=== PATIENT | male | born 1970 | race Native Hawaiian/Other Pacific Islander ===

== ENCOUNTER 2024-02-15 18:21 | Day surgery (SDC) | payer OTHER, SELFPAY ==
[2024-02-15 18:33] VITALS: BP 151/81; PULSE 69; RESP 18; TEMP 36.6; O2SAT 97; BMI 32.0
--- NOTE | 2024-02-15 19:02 | CRLHL7_ITS ---
For Patients: As a result of the Century Cures Act, medical imaging exams and procedure reports are released immediately into your electronic medical record. You may view this report before your referring provider. If you have questions, please contact your health care provider. INDICATION: Abdominal pain, history of kidney stones. TECHNIQUE: CT abdomen and pelvis acquired with 97 cc of Isovue 370 IV contrast. COMPARISON: None. FINDINGS: Lower chest: Mild bibasilar atelectasis. Liver: Unremarkable. Normal in size and attenuation. No suspicious masses. Gallbladder and bile ducts: Unremarkable. No stones or inflammation. No biliary dilatation. Pancreas: Unremarkable. No mass or inflammation. Spleen: Unremarkable. Normal in size. No masses. Adrenal glands: Unremarkable. No nodules. Kidneys: Unremarkable. No suspicious masses, stones, or hydronephrosis. GI tract: Dilated appendix measuring up to 12 mm mild periappendiceal inflammatory stranding. Few small appendicoliths within the lumen. No evidence for perforation or abscess formation. Fatty infiltration of the wall of the ascending and transverse colon as well as the distal rectum. No bowel obstruction. Vasculature: Abdominal aorta is normal in caliber. Mesenteric arteries are patent. Lymph nodes: No lymphadenopathy. Peritoneum/Abdominal Wall: Unremarkable. No free air or significant free fluid. Pelvis: Unremarkable. Bones: Unremarkable for age. IMPRESSION: 1. Dilated appendix, measuring up to 12 mm, with mild periappendiceal inflammatory stranding in the right lower quadrant, compatible with acute uncomplicated appendicitis. 2. Fatty infiltration of the ascending and transverse colon wall as well as the distal rectum, suggestive of chronic inflammation. Please note that all CT scans at this facility use dose modulation, iterative reconstruction, and/or weight-based dosing when appropriate to reduce radiation dose to as low as reasonably achievable. Dictated by Aj Adam MD @ 02/15/2024 8:14:22 PM (Electronically Signed)
--- NOTE | 2024-02-15 19:03 | ED.ABDPAIN ---
HPI - Abdominal Pain General Chief Complaint: Abdominal Pain Stated Complaint: Abdominal pain Time Seen by Provider: 02/15/24 18:56 History of Present Illness HPI narrative: This 53-year-old male comes in with his who does all the speaking for him. They are both Sinhala speaking but his can communicate in Serbian. He comes in with diffuse abdominal pain that started today. He has had some nausea and vomiting but no diarrhea. There is no report of fever. He does have a history of kidney stones. He arrives here with normal vital signs except for blood pressure a bit elevated. Related Data Home Medications ?Medication ?Instructions ?Recorded ?Confirmed No Known Home Medications 02/15/24 02/15/24 Allergies Allergy/AdvReac Type Severity Reaction Status Date / Time No Known Drug Allergies Allergy Verified 02/15/24 19:17 Review of Systems Narrative Unobtainable directly from the patient. His speaks for him. [facility] Social History Smoking Status: Never smoker Do you use any of these nicotine containing products: None How often do you have a drink containing alcohol: never AUDIT-C Alcohol total score: 0 Non-prescribed substance use: denies use Exam Narrative: Exam Narrative: Constitutional: Well-developed, well-nourished, no acute distress. HEENT: Normocephalic, atraumatic. Neck: Normal range of motion. Nontender. Supple. Heart: Regular. No murmurs. Normal rate. Intact distal pulses. Lungs: Clear to auscultation. No chest discomfort. No wheezes, rhonchi, or rales. Abdomen: Normal bowel sounds. Diffuse abdominal pain. No rebound tenderness. No obvious pain when percussing over left and right flank region. Genitalia: Deferred. Back: No midline tenderness. Normal range of motion. Extremities: Normal range of motion. No injury. Skin: Intact. No rash. Warm. No erythema or pallor. Neurologic: No altered sensation. No weakness. Alert and oriented. Psychiatric: No suicidality. No anxiety or depression. No insomnia. Nursing notes and vitals signs are reviewed. Const: Vital Signs, click to edit/add: Vital Signs - 24 hr 02/15/24 18:33 Temperature 97.9 F Pulse Rate [Pulse Oximeter] 69 Respiratory Rate 18 Blood Pressure [Ri ght Upper Arm] 151/81 H Pulse Oximetry 97 Oxygen Delivery Me thod Room Air Course Vital Signs Vital signs: Initial Vital Signs Temperature 97.9 F 02/15/24 18:33 Temperature Source Temporal Artery Scan 02/15/24 18:33 Pulse Rate 69 02/15/24 18:33 Respiratory Rate 18 02/15/24 18:33 Blood Pressure 151/81 H 02/15/24 18:33 Blood Pressure Mean 104 02/15/24 18:33 Pulse Oximetry 97 02/15/24 18:33 Oxygen Delivery Method Room Air 02/15/24 18:33 Vital Signs Temperature 97.9 F 02/15/24 18:33 Pulse Rate 69 02/15/24 18:33 Respiratory Rate 18 02/15/24 18:33 Blood Pressure 151/81 H 02/15/24 18:33 Pulse Oximetry 97 02/15/24 18:33 Oxygen Delivery Method Room Air 02/15/24 18:33 Temperature 97.9 F 02/15/24 18:33 Pulse Rate 69 02/15/24 18:33 Respiratory Rate 18 02/15/24 18:33 Blood Pressure 151/81 H 02/15/24 18:33 Pulse Oximetry 97 02/15/24 18:33 Oxygen Delivery Method Room Air 02/15/24 18:33 Medications Administered Medications: Discontinued Medications Generic Name Dose Route Start Last Admin Trade Name Freq PRN Reason Stop Dose Admin Sodium Chloride 500 mls @ 500 mls/hr 02/15/24 19:00 02/15/24 19:57 0.9 % Sodium Chloride 500 Ml IV 02/15/24 19:59 500 mls/hr .Q1H ONE Administration Ketorolac Tromethamine 30 mg 02/15/24 19:00 02/15/24 19:18 Ketorolac 30 Mg/Ml Inj IVP 02/15/24 19:01 30 mg ONCE ONE Administration Ondansetron HCl 4 mg 02/15/24 19:00 02/15/24 19:19 Ondansetron 2 Mg/Ml Inj IVP 02/15/24 19:01 4 mg ONCE ONE Administration MDM - Abdominal Pain MDM Narrative Medical decision making narrative: This patient comes in with abdominal pain. I did employ finished hardware erector services as the patient and his do not speak much Serbian. His pain began last evening. An IV was established where he did receive 30 mg of Toradol which brought relief to his symptoms. There is a report of a prior history of kidney stones. I did obtain CT scan of the abdomen and pelvis with IV contrast and there was no sign of kidney stones but his appendix is enlarged a 12 mm typical of uncomplicated acute appendicitis. I did speak with the surgeon on-call regarding this who plans to remove the appendix early tomorrow morning at 6:00 a.m.. I spoke with the hospitalist on-call who agrees to his admission for this to occur. Lab Data Labs: Lab Results 02/15/24 Range/Units 19:10 WBC 13.72 H (4.50-11.00) K/uL RBC 5.21 (4.30-5.90) m/uL Hgb 15.3 (13.5-17.5) gm/dL Hct 45.0 (37.0-53.0) % MCV 86 (80-100) fL MCH 29 (26-34) pg MCHC 34 (32-36) gm/dL RDW Coeff of Amrit 12.4 (11.5-15.5) % Plt Count 269 (140-440) K/uL Neut % (Auto) 85.9 H (42.0-72.0) % Lymph % (Auto) 10.0 L (20-44) % Mineral % (Auto) 3.7 (0.0-11.0) % Eos % (Auto) 0.1 (0.0-7.0) % Baso % (Auto) 0.1 (0.0-3.0) % Neut # (Auto) 11.80 H (1.7-7.0) K/uL Lymph # (Auto) 1.40 (0.90-2.90) K/uL Mineral # (Auto) 0.50 (0.00-0.90) K/UL Eos # (Auto) 0.00 (0.00-0.50) K/uL Baso # (Auto) 0.00 (0.00-0.30) K/uL Abs Immat Gran (auto) 0.00 (0.00-0.30) K/uL Imm/Tot Granulo (auto) 0.2 % Sodium 133 L (135-149) mmol/L Potassium 3.7 (3.6-5.1) mmol/L Chloride 99 (96-114) mmol/L Carbon Dioxide 26 (20-32) mmol/L Anion Gap 8 (7-15) mEq/L BUN 13 (7-30) mg/dL Creatinine 0.6 (0.5-1.5) mg/dL Estimated Creat Clear 125.53 Estimated GFR 114 ml/min Glucose 163 H (60-115) mg/dL Calcium 8.8 (8.4-10.6) mg/dL Lipase 32 (23-300) U/L Imaging Data CT scan - abdomen: Radiologist's impression: 1. Dilated appendix, measuring up to 12 mm, with mild periappendiceal inflammatory stranding in the right lower quadrant, compatible with acute uncomplicated appendicitis. 2. Fatty infiltration of the ascending and transverse colon wall as well as the distal rectum, suggestive of chronic inflammation. Discharge Plan Discharge Clinical Impression: Acute appendicitis Patient Disposition: Admitted As Observation Condition: Unchanged Prescriptions: No Action No Known Home Medications Follow Up/Referrals: Provider,Not a Local [Primary Care Provider] -
[2024-02-15] MEDS: KETOROLAC 30 MG/ML inj IVP (19:18)
[2024-02-15 19:19] LABS: Basophils Percent Auto 0.1 % (0.0-3.0); Eosinophils Percent Auto 0.1 % (0.0-7.0); Hemoglobin* 15.3 gm/dL (13.5-17.5); Immature Granulocytes Pct Auto 0.2 %; Mean Corpuscular HGB Conc 34 gm/dL (32-36); Mean Corpuscular Hemoglobin 29 pg (26-34); Mean Corpuscular Volume 86 fL (80-100); Monocytes Percent Auto 3.7 % (0.0-11.0); Neutrophils Percent Auto 85.9 % (42.0-72.0); Platelet Count* 269 K/uL (140-440); RDW Coefficient of Variation % 12.4 % (11.5-15.5); Red Blood Count 5.21 m/uL (4.30-5.90); White Blood Count* 13.72 K/uL (4.50-11.00)
[2024-02-15] MEDS: ONDANSETRON 2 MG/ML inj 4 MG IVP (19:19)
[2024-02-15 19:30] VITALS: O2SAT 97
[2024-02-15 19:35] LABS: Chloride* 99 mmol/L (96-114); Potassium* 3.7 mmol/L (3.6-5.1); Sodium* 133 mmol/L (135-149)
[2024-02-15 19:36] LABS: Slide Review Reflex No
[2024-02-15 19:38] LABS: Anion Gap 8 mEq/L (7-15); Blood Urea Nitrogen* 13 mg/dL (7-30); Calcium* 8.8 mg/dL (8.4-10.6); Carbon Dioxide* 26 mmol/L (20-32); Creatinine* 0.6 mg/dL (0.5-1.5); Est. Creatinine Clearance* 125.53; Estimated Glomerular Filt Rate 114 ml/min; Glucose* 163 mg/dL (60-115)
[2024-02-15] MEDS: 0.9 % SODIUM CHLORIDE 500 ML 500 ML IV (19:57)
--- OUTSIDE RECORDS SUMMARY | 2024-02-15 19:59 | XMS_ITS | Clinical Summary ---
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 Depression with anxiety 08/07/2010 Family history of diabetes mellitus 02/01/2007 Immunizations Name Administration Dates Next Due Tdap 06/14/2018 Family History Medical History Relation Name Comments Good Health Brother Good Health Daughter 1 Good Health Daughter 2 Diabetes Father Hypertension Mother Good Health Sister Good Health Son 1 Good Health Son 2 Relation Name Status Comments Brother Daughter 1 Daughter 2 Father Mother Sister Son 1 Son 2 Social History Tobacco Use Types Packs/Day Years Used Date Smoking Tobacco: Former Cigarettes Q uit: 03/16/1989 Smokeless Tobacco: Never Tobacco Cessation:Counseling Given: Not Answered Alcohol Use Standard Drinks/Week Comments Yes 0 (1 standard drink = 0.6 oz pur e alcohol) rare PHQ-2 Answer Date Recorded PHQ-2 Score 2 06/14/2018 Social Connections Answer Date Recorded Frequency of Communication with Friends and Fami ly Not on file 04/04/2022 Sex and Gender Information Value Date Recorded Sex Assigned at Not on file Gender Identity Not on file Sexual Orientation Not on file Obstetrics History Last Filed Vital Signs Vital Sign Reading Time Taken Comments Blood Pressure 151/95 04/04/2022 1:40 PM DIRECTOR NEWS Pulse 76 04/04/2022 1:40 PM DIRECTOR NEWS Temperature 36.7 C (98.1 F) 06/14/2018 8:23 AM CDT Respiratory Rate 16 01/27/2017 3:20 PM DIRECTOR NEWS Oxygen Saturation 95% 06/14/2018 8:23 AM CDT Inhaled Oxygen Concentration - - Weight 88.3 kg (194 lb 11.2 oz) 04/04/2022 1:40 PM DIRECTOR NEWS Height 160.8 cm (5' 3.31) 06/14/2018 8:23 AM CD T Body Mass Index 34.16 06/14/2018 8:23 AM CDT Plan of Treatment Health Maintenance Due Date Last Done Comments HIV for age 15-65 09/19/1983 Hepatitis C screening for age 18-79 1986 Colonoscopy through age 75 2013 Zoster (shingles) series for age 50+ (1 of 2) 2018 BMI (ht and wt on same day) for age 18+ 06/15/2019 06/14/2018 Depression screening for age 12+ 06/15/2019 06/14/2018 Lipids for age 45-75 06/15/2023 06/14/2018, 08/21/19 11 COVID-19 vaccine series ( season) 2023 01/21/2022, 05/27/2021, 07/17/2020, Additional history exists Influenza for age 50-64 11/15/2023 Tetanus booster 06/14/2028 06/14/2018 Tdap Completed 06/14/2018 Pneumococcal series for age 6-64 Aged Out No longer eligible based on patient's age to complete this topic Procedures Procedure Name Priority Date/Time Associated Diagnosis Comments LIPID PANEL W REFLEX MEASURED LDL Routine 06/14/2018 9:30 AM CDT Screening for lipoid disorders from Last 3 Months or Most Recently Relevant to Health Maintenance Results * LIPID PANEL W REFLEX MEASURED LDL (06/14/2018 9:30 AM CDT) CHOLESTEROL,TOTAL 175 100 - 199 mg/dL 06/14/2018 4:03 PM CDT [facility] TRIGLYCERIDES 80 <150 mg/dL 06/14/2018 4:03 PM CDT [facility] HDL CHOLESTEROL 48 >40 mg/dL 9 4:03 PM CDT [facility] NON-HDL CHOLESTEROL 127 <145 mg/dl 06/14/2018 4:03 PM CDT [facility] CHOL/HDL RATIO 3.65 <4.50 06/14/2018 4:03 PM CDT [facility] LDL CHOLESTEROL 111 <=130 mg/dL 06/14/2018 4:03 PM CDT [facility] PROVIDER ORDERED STATUS RANDOM 06/14/2018 4:03 PM CDT [facility] Blood BLOOD SPECIMEN / Unknown Venipuncture / Unknown 06/14/2018 9:30 AM CDT 06/14/2018 9:32 AM CDT Cheryl Yung MD CHEMISTRY [facility] [address] [place] [address], [place] from Last 3 Months or Most Recently Relevant to Health Maintenance
[2024-02-15 20:17] LABS: Lipase* 32 U/L (23-300)
--- OUTSIDE RECORDS SUMMARY | 2024-02-15 21:27 | XMS_ITS | Clinical Summary ---
Author Organization [facility] Address [place], [place] [address] Care Team Providers Care Health Promotion Coordinator Name Role Phone Unavailable Primary Care Provider [...] Comments Blood Pressure 151/95 04/04/2022 1:40 PM [employer] Pulse 76 04/04/2022 1:40 PM [employer] Temperature 36.7 C (98.1 F) 06/14/2018 8:23 AM CDT Respiratory Rate 16 01/27/2017 3:20 PM [employer] Oxygen Saturation 95% 06/14/2018 8:23 AM CDT Inhaled Oxygen Concentration - - Weight 88.3 kg (194 lb 11.2 oz) 04/04/2022 1:40 PM [employer] Height 160.8 cm (5' 3.31) 06/14/2018 8:23 [...] - 199 mg/dL 06/14/2018 4:03 PM CDT [facility] TRIGLYCERIDES 80 <150 mg/dL 06/14/2018 4:03 PM CDT [facility] HDL CHOLESTEROL 48 >40 mg/dL 9 4:03 PM CDT [facility] NON-HDL CHOLESTEROL 127 <145 mg/dl 06/14/2018 4:03 PM CDT [facility] CHOL/HDL RATIO 3.65 <4.50 06/14/2018 4:03 PM CDT [facility] LDL CHOLESTEROL 111 <=130 mg/dL 06/14/2018 4:03 PM CDT [facility] PROVIDER ORDERED STATUS RANDOM 06/14/2018 4:03 PM CDT [facility] Blood BLOOD SPECIMEN / Unknown Venipuncture / Unknown 06/14/2018 9:30 AM CDT 06/14/2018 9:32 AM CDT Cheryl Yung MD CHEMISTRY [facility] [address] [place] [address], [place] from Last 3 Months or Most Recently Relevant to Health Maintenance
[2024-02-15 21:46] VITALS: BP 145/74; PULSE 74; RESP 18; TEMP 36.6; O2SAT 97
--- NOTE | 2024-02-15 21:47 | P.IMHP_ITS ---
Hospitalist- H&P: HPI History of Present Illness Date Seen: 02/15/24 Chief complaint: Abdominal pain Narrative: Jose Blunt is a 53 year old male with no significant past medical history except for kidney stones. Patient presents to the ED with abdominal pain. Patient is Togolese speaking but his can communicate in [place]. Patient comes in with diffuse abdominal pain that started today. He has had some nausea and vomiting (patient mentioned that he only vomited once) but no diarrhea. No fever or chills. At the ED, patient was hemodynamically stable. CT of the abdomen suggests appendicitis. ED provider contacted Dr. Werner from General surgery, she stated that she will take him to OR tomorrow morning. Review of Systems Status of ROS: Reports: 6 or more systems reviewed and unremarkable except as noted in History and below PFSH PFS Social History Smoking Status: Never smoker Do you use any of these nicotine containing products: None How often do you have a drink containing alcohol: never AUDIT-C Alcohol total score: 0 Non-prescribed substance use: denies use Meds Home Medications and Allergies Home Medications ?Medication ?Instructions ?Recorded ?Confirmed ?Type No Known Home Medications 02/15/24 02/15/24 History Allergies Allergy/AdvReac Type Severity Reaction Status Date / Time No Known Drug Allergies Allergy Verified 02/15/24 19:17 Exam Narrative: Exam Narrative: Physical exam GENERAL: Comfortable, no acute distress. HEAD AND NECK: Atraumatic, normocephalic CARDIOVASCULAR: RRR. Normal S1, S2. No murmurs. RESPIRATORY: Clear to auscultation B/L. Good air entry B/L. No wheezes or rhonchi. GASTROINTESTINAL: Obese, diffuse tenderness to palpation. No rigidity or guarding. NEUROLOGY: Alert, awake, oriented X 3. Normal speech. No focal weakness. PSYCH: Normal mood, normal affect. Const: Vital Signs, click to edit/add: Vital Signs - 24 hr 02/15/24 18:33 02/15/24 21:46 Temperature 97.9 F 97.9 F Pulse Rate [Pulse Oximeter] 69 74 Respiratory Rate 18 18 Blood Pressure [Ri ght Upper Arm] 151/81 H 145/74 H Pulse Oximetry 97 97 Oxygen Delivery Me thod Room Air Room Air Hospitalist - H&P: Result Labs Labs: Short CBC 12/02/24 Range/Units 19:10 WBC 13.72 H (4.50-11.00) K/uL Hgb 15.3 (13.5-17.5) gm/dL Hct 45.0 (37.0-53.0) % Plt Count 269 (140-440) K/uL [facility] 02/15/24 19:10 Sodium 133 L Potassium 3.7 Chloride 99 Carbon Dioxide 26 BUN 13 Creatinine 0.6 Glucose 163 H Calcium 8.[address] scan - abdomen: Radiologist's impression: TECHNIQUE: CT abdomen and pelvis acquired with 97 cc of Isovue 370 IV contrast. COMPARISON: None. FINDINGS: Lower chest: Mild bibasilar atelectasis. Liver: Unremarkable. Normal in size and attenuation. No suspicious masses. Gallbladder and bile ducts: Unremarkable. No stones or inflammation. No biliary dilatation. Pancreas: Unremarkable. No mass or inflammation. Spleen: Unremarkable. Normal in size. No masses. Adrenal glands: Unremarkable. No nodules. Kidneys: Unremarkable. No suspicious masses, stones, or hydronephrosis. GI tract: Dilated appendix measuring up to 12 mm mild periappendiceal inflammatory stranding. Few small appendicoliths within the lumen. No evidence for perforation or abscess formation. Fatty infiltration of the wall of the ascending and transverse colon as well as the distal rectum. No bowel obstruction. Vasculature: Abdominal aorta is normal in caliber. Mesenteric arteries are patent. Lymph nodes: No lymphadenopathy. Peritoneum/Abdominal Wall: Unremarkable. No free air or significant free fluid. Pelvis: Unremarkable. Bones: Unremarkable for age. IMPRESSION: 1. Dilated appendix, measuring up to 12 mm, with mild periappendiceal inflammatory stranding in the right lower quadrant, compatible with acute uncomplicated appendicitis. 2. Fatty infiltration of the ascending and transverse colon wall as well as the distal rectum, suggestive of chronic inflammation. Please note that all CT scans at this facility use dose modulation, iterative reconstruction, and/or weight-based dosing when appropriate to reduce radiation dose to as low as reasonably achievable. Dictated by Aj Adam MD @ 02/15/2024 8:14:22 PM Assessment and Plan Assessment and plan (1) Acute appendicitis: Problem comment: -Abdominal pain that started today. nausea and vomiting. No fever or chills. - CT of the abdomen suggests appendicitis. -ED provider contacted Dr. Werner from General surgery, she stated that she will take him to OR tomorrow morning. -NPO -start IV antibiotics, ceftriaxone and IV Flagyl. -IV fluid maintenance. -pain management with morphine. Status: Acute (2) Leukocytosis: Problem comment: Will monitor Status: Acute Plan As above Total Time Spent Total Time Spent: Time spent: Today I spent 75 minutes seeing the patient, discussing the patient with ER staff, reviewing Expanse and EPIC notes/diagnostics, discussing the care plan with our care time that includes social work, PT/OT, pharmacy, RT, [facility] and documenting my impressions and plan in the medical record.
[2024-02-15 21:49] VITALS: BP 145/74; PULSE 74; RESP 18; TEMP 36.6
[2024-02-15 23:05] VITALS: BP 143/92; PULSE 75; RESP 16; TEMP 36.1; O2SAT 95; BMI 31.9
--- OUTSIDE RECORDS SUMMARY | 2024-02-15 23:15 | XMS_ITS | Clinical Summary ---
Author Organization [facility] Address [place], [place] [address] Care Team Providers Care Drying Oven Attendant Name Role Phone Unavailable Primary Care Provider [...] Comments Blood Pressure 151/95 04/04/2022 1:40 PM DIVINE [employer]ALER Pulse 76 04/04/2022 1:40 PM DIVINE HEALER Temperature 36.7 C (98.1 F) 06/14/2018 8:23 AM CDT Respiratory Rate 16 01/27/2017 3:20 PM DIVINE HEALER Oxygen Saturation 95% 06/14/2018 8:23 AM CDT Inhaled Oxygen Concentration - - Weight 88.3 kg (194 lb 11.2 oz) 04/04/2022 1:40 PM DIVINE HEALER Height 160.8 cm (5' 3.31) 06/14/2018 8:23 [...] - 199 mg/dL 06/14/2018 4:03 PM CDT [facility] TRIGLYCERIDES 80 <150 mg/dL 06/14/2018 4:03 PM CDT [facility] HDL CHOLESTEROL 48 >40 mg/dL 9 4:03 PM CDT [facility] NON-HDL CHOLESTEROL 127 <145 mg/dl 06/14/2018 4:03 PM CDT [facility] CHOL/HDL RATIO 3.65 <4.50 06/14/2018 4:03 PM CDT [facility] LDL CHOLESTEROL 111 <=130 mg/dL 06/14/2018 4:03 PM CDT [facility] PROVIDER ORDERED STATUS RANDOM 06/14/2018 4:03 PM CDT [facility] Blood BLOOD SPECIMEN / Unknown Venipuncture / Unknown 06/14/2018 9:30 AM CDT 06/14/2018 9:32 AM CDT Cheryl Yung MD CHEMISTRY [facility] [address] [place] [address], [place] from Last 3 Months or Most Recently Relevant to Health Maintenance
[2024-02-15] MEDS: MORPHINE 4 MG/ML INJ 2 MG IVP (23:37)
[2024-02-15] MEDS: 0.9 % SODIUM CHLORIDE 1000 ml 1,000 ML 100 ML IV (23:39)
[2024-02-15] MEDS: metroNIDAZOLE 500 MG/100 ML PIGGYBACK 100 MG IVPB (23:39)
[2024-02-16] VITALS (13 sets, daily range): BP systolic 106–133; BP diastolic 47–79; PULSE 69–89; RESP 14–16; TEMP 36.1–36.8; O2SAT 92–96
[2024-02-16] MEDS: cefTRIAXone 1 GM in 0.9 % SODIUM CHLORIDE Mini-bag 100 ML IVPB (00:47)
--- NOTE | 2024-02-16 06:03 | PC.NURSE ---
End of shift: Pt arrived to unit @ 2147 via wheelchair, accompanied bt . Pt AxOx4, cooperative, and pleasant. Pt requires table operator, romansh speaking. Pt indep in room and tolerating well. Pt diet is NPO - undergoing laparoscopic appendectomy. Pt sent down to surgery @ 0612. Pt stated 8/10 pain to the abdomen once during the night. Cvicu Nurse utilized repositioning and PRN pain medication. Relief noted. Pt denies nausea and dizziness. Continent of the bladder.
[2024-02-16] MEDS: LACTATED RINGERS 1000 ML 1,000 ML 75 ML IV (06:12)
--- NOTE | 2024-02-16 06:14 | PM.GSCN ---
History of Present Illness Consult details Date Seen: 02/16/24 Consult date: 02/16/24 Narrative: The patient is a 53-year-old male presented to the emergency department last evening with lower abdominal pain. He states that the pain began around midnight the evening prior to presentation to the emergency department. He states that the pain was worse with movement. He vomited initially twice but has not vomited since. He thought that it was kidney stones because he has had those in the past. He has had some constipation but no diarrhea. No fevers. He states that the pain started around the umbilicus and is located now in his lower abdomen. He does not take any medications. He has not had surgery before. [facility] Social History (Updated 02/16/24 @ 06:16 by Nga Lopez MD) Narrative: He does not smoke. He drinks alcohol rarely. He is currently not working. What is your current living situation?: I presently have a place to live Problems where you live: no known problems Problems where you live details: mobile home In the past 12 months, utilities in danger of being shut off: no In the past 12 mos, have been you worried that your food would run out before you had money to buy more?: sometimes true In the past 12 mos, the food you bought just didn't last and you didn't have money to buy more?: sometimes true Highest level of school completed/degree received: high school graduate Smoking Status: Never smoker Do you use any of these nicotine containing products: None How often do you have a drink containing alcohol: never AUDIT-C Alcohol total score: 0 Non-prescribed substance use: denies use Caffeine: Yes (coffee) How often does anyone, including family, friends and others, physically hurt you: never How often does anyone, including family, friends and others, insult or talk down to you: never How often does anyone, including family, friends and others, threaten you with harm: never How often does anyone, including family, friends and others, scream or curse at you: never service: No Health Related Social Needs: food insecurity (Z59.41) Meds Home Medications and Allergies Home Medications ?Medication ?Instructions ?Recorded ?Confirmed ?Type No Known Home Medications 02/15/24 02/15/24 History Allergies Allergy/AdvReac Type Severity Reaction Status Date / Time latex Allergy Mild Redness of Verified 02/16/24 01:02 Skin Exam Narrative: Exam Narrative: General appearance: Alert, cooperative, and in no distress Eyes: PERRLA, eye lids clear, and sclera white HENT Head: Normocephalic Ears: External ears normal Pulmonary: Breathing nonlabored on room air Cardiovascular Heart: Regular rate Extremities: warm and well perfused Gastrointestinal Abdominal: No scars. Patient is tender in the right lower quadrant with significant rebound. Musculoskeletal: Extremities: Upper: Both upper extremities have normal joint range of motion and intact strength. Lower: Both lower extremities have normal joint range of motion and intact strength. Skin: Normal skin color, texture, and turgor. Neurologic: No focal deficits Psychiatric: Alert, oriented, cooperative, normal affect. Const: Vital Signs, click to edit/add: Vital Signs - 24 hr 02/15/24 18:33 02/15/24 19:30 02/15/24 21:46 Temperature 97.9 F 97.9 F Pulse Rate [Pulse Oximeter] 69 74 Respiratory Rate 18 18 Blood Pressure [Ri ght Arm] Blood Pressure [Ri ght Upper Arm] 151/81 H 145/74 H Pulse Oximetry 97 97 97 Oxygen Delivery Me thod Room Air Room Air 02/15/24 21:49 02/15/24 23:05 02/15/24 23:05 Temperature 97.9 F 97 F L Pulse Rate [Pulse Oximeter] 74 75 Respiratory Rate 18 16 Blood Pressure [Ri ght Arm] 143/92 H Blood Pressure [Ri ght Upper Arm] 145/74 H Pulse Oximetry 95 95 Oxygen Delivery Me thod Room Air Room Air 02/16/24 03:00 Temperature 97.1 F L Pulse Rate [Pulse Oximeter] 83 Respiratory Rate 16 Blood Pressure [Ri ght Arm] 133/79 Blood Pressure [Ri ght Upper Arm] Pulse Oximetry 94 Oxygen Delivery Me thod Room Air Results Labs Labs: Abnormal lab results 02/15/24 Range/Units 19:10 WBC 13.72 H (4.50-11.00) K/uL Neut % (Auto) 85.9 H (42.0-72.0) % Lymph % (Auto) 10.0 L (20-44) % Neut # (Auto) 11.80 H (1.7-7.0) K/uL Sodium 133 L (135-149) mmol/L Glucose 163 H (60-115) mg/dL Diabetes panel 02/15/24 Range/Units 19:10 Sodium 133 L (135-149) mmol/L Potassium 3.7 (3.6-5.1) mmol/L Chloride 99 (96-114) mmol/L Carbon Dioxide 26 (20-32) mmol/L BUN 13 (7-30) mg/dL Creatinine 0.6 (0.5-1.5) mg/dL Glucose 163 H (60-115) mg/dL Calcium 8.8 (8.4-10.6) mg/dL Calcium panel 02/15/24 Range/Units 19:10 Calcium 8.8 (8.4-10.6) mg/dL Pituitary panel 02/15/24 Range/Units 19:10 Sodium 133 L (135-149) mmol/L Potassium 3.7 (3.6-5.1) mmol/L Chloride 99 (96-114) mmol/L Carbon Dioxide 26 (20-32) mmol/L BUN 13 (7-30) mg/dL Creatinine 0.6 (0.5-1.5) mg/dL Glucose 163 H (60-115) mg/dL Calcium 8.8 (8.4-10.6) mg/dL Adrenal panel 02/15/24 Range/Units 19:10 Sodium 133 L (135-149) mmol/L Potassium 3.7 (3.6-5.1) mmol/L Chloride 99 (96-114) mmol/L Carbon Dioxide 26 (20-32) mmol/L BUN 13 (7-30) mg/dL Creatinine 0.6 (0.5-1.5) mg/dL Glucose 163 H (60-115) mg/dL Calcium 8.8 (8.4-10.6) mg/dL All other labs normal. Imaging Abdomen CT scan report/results: report reviewed and image reviewed Additional studies: CT scan of the abdomen pelvis done yesterday evening: IMPRESSION: 1. Dilated appendix, measuring up to 12 mm, with mild periappendiceal inflammatory stranding in the right lower quadrant, compatible with acute uncomplicated appendicitis. 2. Fatty infiltration of the ascending and transverse colon wall as well as the distal rectum, suggestive of chronic inflammation. Dictated by Aj Adam MD @ 02/15/2024 8:14:22 PM Progress Note:A&P Assessment and plan (1) Acute appendicitis: Status: Acute Plan The patient is a 53-year-old male with acute appendicitis. We discussed that appendectomy is the preferred treatment for this. This can most often be done laparoscopically. We discussed risks and benefits of the procedure including but not limited to bleeding, need for conversion to open, risk of injury to other structures, need for possible bowel resection, and abscess formation. The patient understands that the risk of abscess is higher if the appendix is perforated. For that reason, we generally keep patient is in the hospital on IV antibiotics until vital signs and white blood cell count had normalized. We also discussed recovery including 2 weeks of lifting restrictions. He is agreeable to proceed and signed informed consent. We will proceed to the OR urgently this morning.
[2024-02-16] MEDS: PIPERACILLIN/TAZOBACTAM 3.375 GM INJ IVPB (06:46)
[2024-02-16] MEDS: BUPIVACAINE 0.25% 30 ML INJECTION (07:00)
--- NOTE | 2024-02-16 07:17 | PM.GSPRC ---
Operative Note Date of procedure: 02/16/24 Pre-op diagnosis: Acute appendicitis Post-op diagnosis: Same Type of Procedure: Laparoscopic appendectomy Indications: The patient is a 53-year-old male who presented to the emergency department with 1 day of abdominal pain. Workup revealed acute appendicitis. I recommended appendectomy and he agreed to proceed. Procedure Description: After discussing the risks and benefits of the procedure, the patient signed informed consent.? The operative site was marked and the patient was brought to the operating room and placed on the operating table in supine position.? Care was taken to pad the patient's pressure points.?? The patient was then intubated by anesthesia.?? The operative site was then prepped and draped in the usual sterile fashion.? A time-out was then performed. Entrance to the abdomen was obtained via a 5 mm optical trocar in the left upper quadrant. The abdomen was insufflated and briefly surveyed for any signs of injury. There were none. A 12 mm port was placed inferior to the umbilicus as well as a 5 mm port in the left lower quadrant. Both were done under direct vision. The patient was then placed in Trendelenburg position with the right side up. The small bowel was gently moved out of the way and the appendix was in view. A small amount of dissection was necessary to free the appendix from the surrounding pelvic attachments. The appendix was dilated and inflamed with a small amount of fibrinous exudate noted, however there was no perforation noted. The appendix was grasped and pulled into view. A mesenteric window was created between the base of the appendix and the mesoappendix. A vascular load stapler was used to divide the mesoappendix. The base of the appendix was then clearly visualized. A purple load Endo-SCOTTIE stapler was then used to transect the appendix at its base. The staple lines were inspected for bleeding. There was none. The appendix was then removed from the abdomen using an Endo-Catch bag. The specimen was sent to pathology. The 12 mm port site fascia was closed with 0 Vicryl using Berny-Lesley device. The abdomen was desufflated and the remaining ports removed. The skin was then closed with absorbable subcuticular suture. Sterile dressings were then applied. Instrument sponge and needle counts were correct at the end of the case. The patient was then woken and transported to the PACU in stable condition. ? The patient tolerated the procedure well. Findings: Acute non perforated appendicitis. Anesthesia: GETA Surgeon: Nga Lopez MD Estimated blood loss (mL): 5 Specimen: Appendix Condition: stable Disposition: PACU
[2024-02-16] MEDS: ONDANSETRON 2 MG/ML inj 4 MG IVP (07:25)
--- NOTE | 2024-02-16 07:29 | W.ANESCHARGE ---
Anesthesia Charges Start Date/Time Anesthesia Start Date: 02/16/24 Anesthesia Start Time: 06:12 Stop Date/Time Anesthesia Stop Date: 02/16/24 Anesthesia Stop Time: 07:26 Summary Emergency: ASSIST[facility] [employer]
[2024-02-16] MEDS: HYDROCODONE-ACETAMIN 5-325 MG 1 TAB PO (09:03)
--- NOTE | 2024-02-16 09:12 | W.ANESCHARGE ---
Anesthesia Charges Start Date/Time Anesthesia Start Date: 02/16/24 Anesthesia Start Time: 06:12 Stop Date/Time Anesthesia Stop Date: 02/16/24 Anesthesia Stop Time: 07:26 Summary Emergency: MDA
== END 2024-02-16 10:08 | disposition home or self-care (01) ==
LOC: ED 21:26 → SS 23:14 → MEDSURG 23:17 → SS 02-16 10:02
PROVIDERS: Surgery; Emergency Provider Emergency Medicine Emergency Medical Services; Visit Provider Student in an Organized Health Care Education/Training Program
PROC: 0DTJ4ZZ Resection of Appendix, Percutaneous Endoscopic Approach (ICD-10-PCS; CPT 44970; principal; 2024-02-16 05:45)
DX: K35.80 Unspecified acute appendicitis (principal); Z87.442 Personal history of urinary calculi
CPT/HCPCS: 44970; 00840; 36415; 74177; 80048; 83690; 85025; 88304; 94761; 99140; 99284; 99285; A9270; J0665; J0696; J1100; J1171; J1836; J1885; J2250; J2270; J2405; J2543; J2704; J2710; J3010; J7030; J7120; Q9967